=== PATIENT | male | born 1980 | race Caucasian/White ===

== ENCOUNTER 2019-04-13 14:42 | Emergency (ER) | payer MEDICAID ==
[~2019-04-13] VITALS: Ht 170.2 cm; Wt 74.8 kg
[2019-04-13 14:45] VITALS: BP_SYST 130
[2019-04-13] MEDS ORDERED: NACL 0.9% 1,000 ML IV ONE (15:39)
--- NOTE | 2019-04-13 15:39 | NUR ---
Patient to ER bed 05 to gown for evaluation. Side rails up.
--- NOTE | 2019-04-13 15:40 | NUR ---
Patient arrived in the ED c/o abdominal pain that started 2 days ago. Patient denied any chest pain or shortness of breath. Denied any fevers, chills, nausea, or vomiting. Patient is alert and oriented x4, respirations even and unlabored, speaking in full sentences, and ambulating with a steady gait. VSS, pain level 7/10. Informed of the approximate wait time. Instructed to notify ED staff for any changes in condition or worsening of symptoms. Patient verbalized understanding.
--- NOTE | 2019-04-13 15:41 | NUR ---
ER Dr. Bryant at bedside examining patient.
[2019-04-13] MEDS ORDERED: NS 1000 ML IV.SOLN IV ONE (15:45)
[2019-04-13] MEDS ORDERED: MORPHINE 2 MG/ML INJ. SYRINGE IVP ONE (15:45)
[2019-04-13] MEDS ORDERED: ONDANSETRON HCL 4 MG/2 ML VIAL IVP ONE (15:45)
--- NOTE | 2019-04-13 15:59 | NUR ---
X-ray done at bedside as ordered by Dr. Bryant. Patient tolerated the procedure well.
--- NOTE | 2019-04-13 16:07 | NUR ---
or scrub tech at bedside collecting blood specimen as ordered by Dr. Bryant. Patient tolerated the procedure well.
--- NOTE | 2019-04-13 16:15 | NUR ---
# 20 gauge angiocath placed to RFA. Use of asceptic technique. Opsite placed over site. Blood return noted. Flushed with 10 cc of normal saline. No evidence of infiltration noted. Patient tolerated well.
--- NOTE | 2019-04-13 16:20 | NUR ---
Patient ambulated to the bathroom with a steady gait. Urine specimen collected and dropped off at the lab.
--- NOTE | 2019-04-13 16:20 | NUR ---
Administered Morphine Sulfate and Zofran IVP as ordered by Dr. Bryant. Patient tolerated the medication well. See eMAR for details.
[2019-04-13 16:32] LABS: BASOPHILS # (AUTO) 0.1 K/uL (0.0-0.2); BASOPHILS % (AUTO) 0.7 % (0.0-2.0); EOSINOPHILS % (AUTO) 0.2 % (0.0-4.0); HEMATOCRIT 49.1 % (36-54); HEMOGLOBIN 16.7 g/dL (14.0-18.0); LYMPHOCYTES # (AUTO) 0.8 K/uL (1.0-5.5); LYMPHOCYTES % (AUTO) 10.7 % (20.5-51.5); MEAN CORPUSCULAR HEMOGLOBIN 32 pg (27-31); MEAN CORPUSCULAR HGB CONC 34 % (32-36); MEAN CORPUSCULAR VOLUME 94 fL (79.0-98.0); MONOCYTES # (AUTO) 0.8 K/uL (0.0-1.0); MONOCYTES % (AUTO) 10.9 % (1.7-9.3); NEUTROPHILS % (AUTO) 77.5 % (40.0-70.0); PLATELET COUNT (AUTO) 256 K/uL (130-430); RED BLOOD CELL COUNT(AUTO) 5.22 MIL/uL (4.2-6.2); RED CELL DISTRIBUTION WIDTH 13.3 % (9.0-15.0); WHITE BLOOD COUNT (AUTO) 7.8 K/uL (4.8-10.8)
[2019-04-13 16:49] LABS: PROTHROMBIN TIME 10.2 SECS (9.5-12.5)
[2019-04-13 16:52] LABS: ANION GAP 13 (5-15); CALCIUM 8.8 mg/dL (8.4-11.0); CHLORIDE 102 mmol/L (98-107); CREATININE 0.92 mg/dL (0.55-1.30); GLUCOSE 98 mg/dL (70-99); POTASSIUM 3.4 mmol/L (3.5-5.1); SODIUM SERUM 140 mmol/L (136-145); UREA NITROGEN, BLOOD 7 mg/dL (8-21)
[2019-04-13 16:54] LABS: GFR AFRICAN AMERICAN 119 mL/min (>90)
[2019-04-13 16:58] LABS: ALANINE AMINOTRANSFERASE 31 U/L (12-78); ALBUMIN 4.5 g/dL (3.4-4.8); AMYLASE 55 U/L (0-100); ASPARTATE AMINOTRANSFERASE 23 U/L (10-37); LIPASE 92 U/L (73-393); TOTAL BILIRUBIN 0.5 mg/dL (0.0-1.0)
[2019-04-13 17:07] LABS: ACETAMINOPHEN < 1 ug/mL (1-30)
[2019-04-13 17:08] LABS: ALCOHOL, BLOOD < 3 mg/dL (<10)
--- NOTE | 2019-04-13 18:00 | NUR ---
Patient is resting comfortably in bed, respirations even and unlabored. VSS, denied any pain at this time.
[2019-04-13 18:02] LABS: BILIRUBIN,URINE NEGATIVE (NEGATIVE); BLOOD, URINE NEGATIVE (NEGATIVE); CLARITY/URINE CLEAR (CLEAR); COLOR,URINE YELLOW (YELLOW); GLUCOSE,URINE NEGATIVE (NEGATIVE); KETONES,URINE NEGATIVE (NEGATIVE); LEUKOCYTE ESTERASE ,URINE NEGATIVE (NEGATIVE); NITRITE, URINE NEGATIVE (NEGATIVE); PROTEIN URINE NEGATIVE (NEGATIVE); UROBILINOGEN,URINE 0.2 (0.2-1.0)
[2019-04-13 18:35] LABS: BARBITURATE, URINE NEGATIVE (NEG <=200); BENZODIAZEPINE, URINE NEGATIVE (NEG <=150); CANNABINOID, URINE NEGATIVE (NEG <=50); COCAINE, URINE NEGATIVE (NEG <=150); METHAMPHETAMINES SCREEN,URINE NEGATIVE (NEG <=500); OPIATE, URINE NEGATIVE (NEG <=100); PHENCYCLIDINE SCREEN,URINE NEGATIVE (NEG <=25); UR TRICYCLIC ANTIDEPRESSANTS NEGATIVE (NEG <=300); URINE AMPHETAMINE NEGATIVE (NEG <=500); URINE METHADONE NEGATIVE (NEG <=200); URINE OXYCODONE SCREEN NEGATIVE (NEG <=100); URINE PROPOXYPHENE SCREEN NEGATIVE (NEG <=300)
--- NOTE | 2019-04-13 19:10 | NUR ---
Report given and care transferred to HIRA Velazquez.
[2019-04-13] MEDS ORDERED: PRAZ2CAP2 PO (19:40)
[2019-04-13] MEDS ORDERED: VENL150C2 PO (19:40)
[2019-04-13] MEDS ORDERED: ESZO3TAB27 PO (19:40)
[2019-04-13 19:41] VITALS: BP_SYST 128
--- NOTE | 2019-04-13 19:44 | NUR ---
REASSESSMENT BY ERMD; IV OUT AND DRESSED; PATIENT STATES ASYMPTOMATIC; PREPARATIONS FOR DISCHARGE; ACI GIVEN AND PATIENT INDICATED FULL UNDERSTANDING; DISCHARGED AMBULATORY WITH STEADY GAIT; IMPROVED
== END 2019-04-13 19:44 | disposition home or self-care (01) ==
LOC: SED 14:42
DX: R10.84 Generalized abdominal pain (principal); F25.9 Schizoaffective disorder, unspecified
CPT/HCPCS: 36415; 71045; 80053; 80307; 81003; 82150; 82550; 83605; 83690; 83880; 84484; 85025; 85610; 85730; 87040; 93005; 96374; 96375; 99284; G0480; G0481; G0482; J2270; J2405; J7030

== ENCOUNTER 2019-04-19 20:27 | Emergency (ER) | payer MEDICAID ==
[~2019-04-19] VITALS: Ht 170.2 cm; Wt 74.8 kg
[~2019-04-19 20:27] MED LIST: ESZO3TAB27 PO; PRAZ2CAP2 PO; VENL150C2 PO
[2019-04-19 20:59] VITALS: BP_SYST 155
--- NOTE | 2019-04-19 21:05 | NUR ---
Patient triaged and placed in waiting room. VSS and patient appears in no acute distress at this time. Accompanied by self, awaiting available bed, and MD notified of need for MSE.
--- NOTE | 2019-04-19 21:07 | NUR ---
Patient to ER bed ch1 for evaluation. Side rails up.
--- NOTE | 2019-04-19 21:08 | NUR ---
ER Dr. Lynn at bedside examining patient.
--- NOTE | 2019-04-19 21:09 | NUR ---
Pt AAOx4 ambulated into ED c/o sudden onset of chest pain, palpitations s/p smoking tobacco from friend. EKG done in triage. Denies n/v/d. No other injuries/complaitns per pt/noted. Will continue to monitor.
[2019-04-19 21:10] VITALS: BP_SYST 136
--- NOTE | 2019-04-19 21:10 | NUR ---
She spivey in [facility] - 04/19/19 at [id number] by [email or web address] NICHOLAS Lynn at bedside examining patient.
--- NOTE | 2019-04-19 21:10 | NUR ---
Patient given written and verbal discharge instructions and verbalizes understanding. ER MD Lynn discussed with patient the results and treatment provided. Patient in stable condition. ID arm band removed. No Rx given. Patient educated on pain management and to follow up with PMD. Pain Scale 0. Opportunity for questions provided and answered. Medication side effect fact sheet provided.
== END 2019-04-19 21:10 | disposition home or self-care (01) ==
LOC: SED 20:27
DX: R00.2 Palpitations (principal); F41.9 Anxiety disorder, unspecified; F17.290 Nicotine dependence, other tobacco product, uncomplicated; Z79.899 Other long term (current) drug therapy
CPT/HCPCS: 93005; 99283